=== PATIENT | female | born 1935 | race Caucasian/White ===

== ENCOUNTER 2024-05-15 22:25 | Inpatient (IN) | payer MEDICARE, OTHER ==
[2024-05-16] MEDS ORDERED: Acetaminophen 325 MG TAB PO PRN (00:07)
[2024-05-16] MEDS ORDERED: Ondansetron ODT 4 MG TAB PO PRN (00:07)
[2024-05-16] MEDS ORDERED: Acetaminophen 650 MG Suppository PR PRN (00:07)
[2024-05-16] MEDS: Ondansetron PF 4 MG/2 ML Vial IVP PRN (00:53)
[2024-05-16] MEDS: Pantoprazole 40 MG VIAL IVP SCH ×2 (00:53→08:46)
[2024-05-16] MEDS: Sodium Chloride 0.9% 1,000 ML IV SCH (00:54)
[2024-05-16 01:14] VITALS: BMI 23.5
[2024-05-16 03:01] LABS: Chloride 95 mmol/L (98-107); Potassium 3.8 mmol/L (3.5-5.1)
[2024-05-16 03:02] LABS: Calcium 7.4 mg/dL (7.8-10.44); Glucose 88 mg/dL (83-110)
[2024-05-16 03:04] LABS: Anion Gap 13 mmol/L (10-20); Carbon Dioxide 12 mmol/L (23-31)
[2024-05-16 03:06] LABS: BUN (Urea Nitrogen) 6 mg/dL (9.8-20.1); Calc. Creatinine Clearance 73 mL/min (70-130); Estimated GFR 89
[2024-05-16 03:18] LABS: Sodium 116 mmol/L (136-145)
[2024-05-16 06:30] LABS: Phosphorus 2.6 mg/dL (2.3-4.7)
[2024-05-16 06:32] LABS: Anion Gap 10 mmol/L (10-20); BUN (Urea Nitrogen) 5 mg/dL (9.8-20.1); Calc. Creatinine Clearance 61 mL/min (70-130); Calcium 7.4 mg/dL (7.8-10.44); Carbon Dioxide 14 mmol/L (23-31); Chloride 97 mmol/L (98-107); Estimated GFR 85; Glucose 78 mg/dL (83-110); Magnesium 1.9 mg/dL (1.6-2.6); Potassium 3.8 mmol/L (3.5-5.1); Sodium 117 mmol/L (136-145)
[2024-05-16 08:27] LABS: Anion Gap 10 mmol/L (10-20); BUN (Urea Nitrogen) 5 mg/dL (9.8-20.1); Calc. Creatinine Clearance 59 mL/min (70-130); Calcium 7.5 mg/dL (7.8-10.44); Carbon Dioxide 16 mmol/L (23-31); Chloride 97 mmol/L (98-107); Estimated GFR 85; Glucose 79 mg/dL (83-110); Potassium 3.8 mmol/L (3.5-5.1); Sodium 119 mmol/L (136-145)
[2024-05-16] MEDS: Enoxaparin 40 MG (0.4 mL) SYRINGE SC SCH (08:46)
[2024-05-16 17:30] LABS: Anion Gap 12 mmol/L (10-20); BUN (Urea Nitrogen) 5 mg/dL (9.8-20.1); Calc. Creatinine Clearance 60 mL/min (70-130); Calcium 7.5 mg/dL (7.8-10.44); Carbon Dioxide 15 mmol/L (23-31); Chloride 96 mmol/L (98-107); Estimated GFR 85; Glucose 77 mg/dL (83-110); Potassium 3.8 mmol/L (3.5-5.1); Sodium 119 mmol/L (136-145)
[2024-05-16 17:43] LABS: Anion Gap 10 mmol/L (10-20); BUN (Urea Nitrogen) 6 mg/dL (9.8-20.1); Calc. Creatinine Clearance 60 mL/min (70-130); Calcium 7.3 mg/dL (7.8-10.44); Carbon Dioxide 16 mmol/L (23-31); Chloride 97 mmol/L (98-107); Estimated GFR 85; Glucose 85 mg/dL (83-110); Potassium 3.8 mmol/L (3.5-5.1); Sodium 119 mmol/L (136-145)
[2024-05-16 20:47] LABS: Anion Gap 4 mmol/L (10-20); BUN (Urea Nitrogen) 5 mg/dL (9.8-20.1); Calc. Creatinine Clearance 83 mL/min (70-130); Carbon Dioxide 13 mmol/L (23-31); Chloride 112 mmol/L (98-107); Estimated GFR 92; Glucose 63 mg/dL (83-110); Potassium 2.6 mmol/L (3.5-5.1); Sodium 126 mmol/L (136-145)
[2024-05-16] MEDS ORDERED: Potassium Chloride 20 MEQ TAB PO SCH (21:00)
[2024-05-16] MEDS ORDERED: Calcium Carbonate 500 MG ChewTAB PO SCH (21:00)
[2024-05-16] MEDS ORDERED: Electrolyte Replacement Protocol 1 EACH FS SCH (21:00)
[2024-05-16] MEDS: Potassium Bicarbonate/Cit Ac 20 MEQ TAB PO SCH (22:43)
[2024-05-16] MEDS: Calcium Carbonate 600 MG TAB PO SCH (22:43)
[2024-05-17 04:22] LABS: #Basophils 0.03 10x3/uL (0.0-0.2); %Basophils 0.7 % (0.0-1.0); %Eosinophils 2.6 % (0.0-10.0); %Monocytes 10.2 % (0.0-10.0); %Neutrophils 51.3 % (42.0-75.0); Hematocrit 31.2 % (36.0-47.0); Hemoglobin 11.7 g/dL (12.0-16.0); Mean Corpuscular HGB CONC 37.5 g/dL (32.0-36.0); Mean Corpuscular Hemoglobin 30.3 pg (27.0-31.0); Mean Corpuscular Volume 80.8 fL (78.0-98.0); Mean Platelet Volume 10.6 fL (7.4-10.4); Platelet Count 133 10x3/uL (130-400); RBC Distribution Width 11.9 % (11.5-14.5); Red Blood Cell (RBC) Count 3.86 mill/uL (4.20-5.40)
[2024-05-17 05:09] LABS: Albumin 2.8 g/dL (3.4-4.8); Anion Gap 10 mmol/L (10-20); BUN (Urea Nitrogen) 6 mg/dL (9.8-20.1); BUN/Creatinine Ratio 9.09; Calc. Creatinine Clearance 59 mL/min (70-130); Calcium 8.2 mg/dL (7.8-10.44); Carbon Dioxide 19 mmol/L (23-31); Chloride 94 mmol/L (98-107); Estimated GFR 85; Glucose 88 mg/dL (83-110); Magnesium 1.9 mg/dL (1.6-2.6); Phosphorus 2.4 mg/dL (2.3-4.7); Sodium 118 mmol/L (136-145)
[2024-05-17] MEDS: Levothyroxine Sodium 50 MCG TAB PO SCH (06:17)
[2024-05-17] MEDS: Calcium Carbonate 600 MG + Vit D TAB PO SCH (10:39)
[2024-05-17] MEDS: Magnesium 2 GM/50 ML(in water) 2 GM in Premix 1 BAG IVPB SCH (10:39)
[2024-05-17] MEDS: Sodium Chloride 0.9% 1,000 ML IV SCH (10:40)
[2024-05-17 10:46] LABS: Anion Gap 9 mmol/L (10-20); BUN (Urea Nitrogen) 6 mg/dL (9.8-20.1); Calc. Creatinine Clearance 58 mL/min (70-130); Calcium 8.4 mg/dL (7.8-10.44); Carbon Dioxide 20 mmol/L (23-31); Chloride 94 mmol/L (98-107); Estimated GFR 85; Glucose 147 mg/dL (83-110); Potassium 3.9 mmol/L (3.5-5.1); Sodium 119 mmol/L (136-145)
[2024-05-17 21:05] LABS: Chloride 94 mmol/L (98-107); Potassium 4.6 mmol/L (3.5-5.1)
[2024-05-17 21:06] LABS: Calcium 7.9 mg/dL (7.8-10.44); Glucose 96 mg/dL (83-110)
[2024-05-17 21:08] LABS: Anion Gap 13 mmol/L (10-20); Carbon Dioxide 16 mmol/L (23-31)
[2024-05-17 21:10] LABS: Calc. Creatinine Clearance 64 mL/min (70-130); Estimated GFR 87
[2024-05-17 21:11] LABS: BUN (Urea Nitrogen) 8 mg/dL (9.8-20.1)
[2024-05-17 21:14] LABS: Sodium 118 mmol/L (136-145)
[2024-05-18 04:14] LABS: #Basophils 0.03 10x3/uL (0.0-0.2); %Basophils 0.6 % (0.0-1.0); %Eosinophils 2.5 % (0.0-10.0); %Lymphocytes 38.7 % (21.0-51.0); %Monocytes 11.8 % (0.0-10.0); %Neutrophils 45.8 % (42.0-75.0); Hematocrit 32.1 % (36.0-47.0); Hemoglobin 11.8 g/dL (12.0-16.0); Mean Corpuscular HGB CONC 36.8 g/dL (32.0-36.0); Mean Corpuscular Hemoglobin 30.3 pg (27.0-31.0); Mean Corpuscular Volume 82.5 fL (78.0-98.0); Mean Platelet Volume 10.4 fL (7.4-10.4); Platelet Count 165 10x3/uL (130-400); Red Blood Cell (RBC) Count 3.89 mill/uL (4.20-5.40)
[2024-05-18 04:25] LABS: Anion Gap 9 mmol/L (10-20); BUN (Urea Nitrogen) 6 mg/dL (9.8-20.1); Calc. Creatinine Clearance 69 mL/min (70-130); Calcium 7.9 mg/dL (7.8-10.44); Carbon Dioxide 20 mmol/L (23-31); Chloride 96 mmol/L (98-107); Estimated GFR 88; Glucose 88 mg/dL (83-110); Potassium 4.2 mmol/L (3.5-5.1); Sodium 121 mmol/L (136-145)
[2024-05-18] MEDS: Sodium Chloride 0.9% 1,000 ML IV SCH (08:55)
[2024-05-18 13:28] LABS: Magnesium 1.7 mg/dL (1.6-2.6)
[2024-05-18] MEDS: Magnesium 2 GM/50 ML(in water) 2 GM in Premix 1 BAG IVPB SCH (16:39)
[2024-05-18] MEDS: Mirtazapine 15 MG TAB PO SCH (20:04)
[2024-05-19 04:21] LABS: #Basophils 0.03 10x3/uL (0.0-0.2); %Basophils 0.6 % (0.0-1.0); %Eosinophils 3.2 % (0.0-10.0); %Lymphocytes 35.8 % (21.0-51.0); %Monocytes 10.4 % (0.0-10.0); %Neutrophils 49.8 % (42.0-75.0); Hematocrit 32.7 % (36.0-47.0); Hemoglobin 11.9 g/dL (12.0-16.0); Mean Corpuscular HGB CONC 36.4 g/dL (32.0-36.0); Mean Corpuscular Hemoglobin 30.1 pg (27.0-31.0); Mean Corpuscular Volume 82.6 fL (78.0-98.0); Mean Platelet Volume 10.6 fL (7.4-10.4); Platelet Count 170 10x3/uL (130-400); RBC Distribution Width 11.9 % (11.5-14.5); Red Blood Cell (RBC) Count 3.96 mill/uL (4.20-5.40)
[2024-05-19 04:48] LABS: Anion Gap 10 mmol/L (10-20); BUN (Urea Nitrogen) 8 mg/dL (9.8-20.1); Calc. Creatinine Clearance 68 mL/min (70-130); Calcium 7.9 mg/dL (7.8-10.44); Carbon Dioxide 19 mmol/L (23-31); Chloride 93 mmol/L (98-107); Estimated GFR 88; Glucose 91 mg/dL (83-110); Magnesium 1.9 mg/dL (1.6-2.6); Potassium 4.5 mmol/L (3.5-5.1); Sodium 117 mmol/L (136-145)
[2024-05-19] MEDS: Sodium Chloride 1 GM TAB PO SCH ×2 (09:28→20:42)
[2024-05-19] MEDS: Magnesium 2 GM/50 ML(in water) 2 GM in Premix 1 BAG IVPB SCH (09:29)
[2024-05-19] MEDS: Sodium Chloride 0.9% 1,000 ML IV SCH (09:33)
[2024-05-19 18:27] LABS: Anion Gap 11 mmol/L (10-20); BUN (Urea Nitrogen) 10 mg/dL (9.8-20.1); Calc. Creatinine Clearance 67 mL/min (70-130); Carbon Dioxide 19 mmol/L (23-31); Chloride 90 mmol/L (98-107); Estimated GFR 88; Glucose 103 mg/dL (83-110); Potassium 4.5 mmol/L (3.5-5.1); Sodium 115 mmol/L (136-145)
[2024-05-20 04:28] LABS: #Basophils 0.05 10x3/uL (0.0-0.2); %Eosinophils 3.5 % (0.0-10.0); %Lymphocytes 41.7 % (21.0-51.0); %Monocytes 9.7 % (0.0-10.0); %Neutrophils 43.7 % (42.0-75.0); Hematocrit 34.3 % (36.0-47.0); Hemoglobin 12.8 g/dL (12.0-16.0); Mean Corpuscular HGB CONC 37.3 g/dL (32.0-36.0); Mean Corpuscular Hemoglobin 30.8 pg (27.0-31.0); Mean Corpuscular Volume 82.7 fL (78.0-98.0); Mean Platelet Volume 10.1 fL (7.4-10.4); Platelet Count 181 10x3/uL (130-400); Red Blood Cell (RBC) Count 4.15 mill/uL (4.20-5.40)
[2024-05-20 05:00] LABS: Anion Gap 9 mmol/L (10-20); BUN (Urea Nitrogen) 10 mg/dL (9.8-20.1); Calc. Creatinine Clearance 70 mL/min (70-130); Calcium 8.4 mg/dL (7.8-10.44); Carbon Dioxide 19 mmol/L (23-31); Chloride 90 mmol/L (98-107); Estimated GFR 88; Glucose 95 mg/dL (83-110); Potassium 4.9 mmol/L (3.5-5.1); Sodium 113 mmol/L (136-145)
[2024-05-20] MEDS: Levothyroxine Sodium 25 MCG TAB PO SCH (10:25)
[2024-05-20 19:04] LABS: Anion Gap 12 mmol/L (10-20); BUN (Urea Nitrogen) 14 mg/dL (9.8-20.1); Calc. Creatinine Clearance 64 mL/min (70-130); Calcium 8.4 mg/dL (7.8-10.44); Carbon Dioxide 21 mmol/L (23-31); Chloride 89 mmol/L (98-107); Estimated GFR 86; Glucose 116 mg/dL (83-110); Potassium 4.4 mmol/L (3.5-5.1); Sodium 118 mmol/L (136-145)
[2024-05-21 04:19] LABS: #Basophils 0.06 10x3/uL (0.0-0.2); %Monocytes 9.2 % (0.0-10.0); %Neutrophils 46.2 % (42.0-75.0); Hematocrit 35.5 % (36.0-47.0); Mean Corpuscular HGB CONC 36.6 g/dL (32.0-36.0); Mean Corpuscular Hemoglobin 30.2 pg (27.0-31.0); Mean Corpuscular Volume 82.6 fL (78.0-98.0); Mean Platelet Volume 10.2 fL (7.4-10.4); Platelet Count 213 10x3/uL (130-400); RBC Distribution Width 11.9 % (11.5-14.5)
[2024-05-21 04:40] LABS: Anion Gap 9 mmol/L (10-20); BUN (Urea Nitrogen) 15 mg/dL (9.8-20.1); Calc. Creatinine Clearance 60 mL/min (70-130); Calcium 8.5 mg/dL (7.8-10.44); Carbon Dioxide 20 mmol/L (23-31); Chloride 87 mmol/L (98-107); Estimated GFR 85; Glucose 88 mg/dL (83-110); Magnesium 1.6 mg/dL (1.6-2.6); Potassium 5.2 mmol/L (3.5-5.1); Sodium 111 mmol/L (136-145)
[2024-05-21] MEDS: Levothyroxine Sodium 75 MCG TAB PO SCH (05:27)
[2024-05-21 08:12] LABS: Anion Gap 11 mmol/L (10-20); BUN (Urea Nitrogen) 13 mg/dL (9.8-20.1); Calc. Creatinine Clearance 55 mL/min (70-130); Calcium 8.8 mg/dL (7.8-10.44); Carbon Dioxide 21 mmol/L (23-31); Chloride 86 mmol/L (98-107); Estimated GFR 82; Glucose 93 mg/dL (83-110); Potassium 4.8 mmol/L (3.5-5.1); Sodium 113 mmol/L (136-145)
[2024-05-21] MEDS: Magnesium 2 GM/50 ML(in water) 2 GM in Premix 1 BAG IVPB SCH (08:49)
[2024-05-21] MEDS: Sodium Chloride 1 GM TAB PO SCH (15:00)
[2024-05-21] MEDS ORDERED: Electrolyte Replacement Protocol FS PRN (15:30)
[2024-05-21 21:05] LABS: Anion Gap 11 mmol/L (10-20); BUN (Urea Nitrogen) 16 mg/dL (9.8-20.1); Calc. Creatinine Clearance 54 mL/min (70-130); Calcium 8.6 mg/dL (7.8-10.44); Carbon Dioxide 19 mmol/L (23-31); Chloride 89 mmol/L (98-107); Estimated GFR 81; Glucose 107 mg/dL (83-110); Potassium 5.1 mmol/L (3.5-5.1); Sodium 114 mmol/L (136-145)
[2024-05-22 06:28] LABS: #Basophils 0.05 10x3/uL (0.0-0.2); %Basophils 0.8 % (0.0-1.0); %Eosinophils 2.5 % (0.0-10.0); %Lymphocytes 39.1 % (21.0-51.0); %Monocytes 11.2 % (0.0-10.0); %Neutrophils 45.8 % (42.0-75.0); Hematocrit 38.1 % (36.0-47.0); Hemoglobin 13.9 g/dL (12.0-16.0); Mean Corpuscular HGB CONC 36.5 g/dL (32.0-36.0); Mean Corpuscular Hemoglobin 30.2 pg (27.0-31.0); Mean Corpuscular Volume 82.8 fL (78.0-98.0); Mean Platelet Volume 10.2 fL (7.4-10.4); Platelet Count 224 10x3/uL (130-400)
[2024-05-22 06:44] LABS: Anion Gap 12 mmol/L (10-20); BUN (Urea Nitrogen) 18 mg/dL (9.8-20.1); Calc. Creatinine Clearance 55 mL/min (70-130); Carbon Dioxide 20 mmol/L (23-31); Chloride 87 mmol/L (98-107); Estimated GFR 82; Glucose 90 mg/dL (83-110); Magnesium 1.9 mg/dL (1.6-2.6); Potassium 5.4 mmol/L (3.5-5.1); Sodium 114 mmol/L (136-145)
[2024-05-22] MEDS: Magnesium 2 GM/50 ML(in water) 2 GM in Premix 1 BAG IVPB SCH (09:03)
[2024-05-22] MEDS ORDERED: Polyethylene Glycol 3350 17 GM Packet PO PRN (12:53)
[2024-05-22] MEDS: Docusate 100 MG CAP PO SCH (14:14)
[2024-05-22] MEDS: Lactulose 20 GM (30 mL) UDCUP PO SCH (14:14)
[2024-05-22 18:36] LABS: Anion Gap 12 mmol/L (10-20); BUN (Urea Nitrogen) 19 mg/dL (9.8-20.1); Calc. Creatinine Clearance 48 mL/min (70-130); Calcium 8.8 mg/dL (7.8-10.44); Carbon Dioxide 20 mmol/L (23-31); Chloride 90 mmol/L (98-107); Estimated GFR 69; Glucose 118 mg/dL (83-110); Potassium 4.9 mmol/L (3.5-5.1); Sodium 117 mmol/L (136-145)
[2024-05-22] MEDS: Docusate 100 MG CAP PO PRN (20:47)
[2024-05-23 04:55] LABS: #Basophils 0.05 10x3/uL (0.0-0.2); %Basophils 0.5 % (0.0-1.0); %Eosinophils 0.8 % (0.0-10.0); %Lymphocytes 22.3 % (21.0-51.0); %Monocytes 8.3 % (0.0-10.0); %Neutrophils 67.5 % (42.0-75.0); Hematocrit 37.6 % (36.0-47.0); Hemoglobin 13.7 g/dL (12.0-16.0); Mean Corpuscular HGB CONC 36.4 g/dL (32.0-36.0); Mean Corpuscular Hemoglobin 30.2 pg (27.0-31.0); Mean Platelet Volume 10.1 fL (7.4-10.4); Platelet Count 249 10x3/uL (130-400); RBC Distribution Width 12.1 % (11.5-14.5); Red Blood Cell (RBC) Count 4.53 mill/uL (4.20-5.40)
[2024-05-23 06:02] LABS: Anion Gap 13 mmol/L (10-20); BUN (Urea Nitrogen) 18 mg/dL (9.8-20.1); Calc. Creatinine Clearance 55 mL/min (70-130); Calcium 8.8 mg/dL (7.8-10.44); Carbon Dioxide 20 mmol/L (23-31); Chloride 87 mmol/L (98-107); Estimated GFR 81; Glucose 100 mg/dL (83-110); Potassium 5.5 mmol/L (3.5-5.1); Sodium 114 mmol/L (136-145)
[2024-05-23] MEDS: Magnesium 2 GM/50 ML(in water) 2 GM in Premix 1 BAG IVPB SCH (10:18)
[2024-05-23 13:42] VITALS: BMI 23.1
[2024-05-23 19:07] LABS: Anion Gap 13 mmol/L (10-20); BUN (Urea Nitrogen) 20 mg/dL (9.8-20.1); Calc. Creatinine Clearance 50 mL/min (70-130); Calcium 8.5 mg/dL (7.8-10.44); Carbon Dioxide 16 mmol/L (23-31); Chloride 88 mmol/L (98-107); Estimated GFR 75; Glucose 158 mg/dL (83-110); Potassium 4.9 mmol/L (3.5-5.1); Sodium 112 mmol/L (136-145)
[2024-05-23 21:50] LABS: Sodium 115 mmol/L (136-145)
[2024-05-24 03:59] LABS: Sodium 116 mmol/L (136-145)
[2024-05-24 06:11] LABS: #Basophils 0.06 10x3/uL (0.0-0.2); %Basophils 0.8 % (0.0-1.0); %Eosinophils 1.6 % (0.0-10.0); %Lymphocytes 28.6 % (21.0-51.0); %Monocytes 10.3 % (0.0-10.0); %Neutrophils 58.2 % (42.0-75.0); Hematocrit 38.3 % (36.0-47.0); Hemoglobin 13.8 g/dL (12.0-16.0); Mean Corpuscular Hemoglobin 29.9 pg (27.0-31.0); Mean Corpuscular Volume 83.1 fL (78.0-98.0); Mean Platelet Volume 10.3 fL (7.4-10.4); Platelet Count 244 10x3/uL (130-400); Red Blood Cell (RBC) Count 4.61 mill/uL (4.20-5.40)
[2024-05-24 06:16] LABS: Anion Gap 12 mmol/L (10-20); BUN (Urea Nitrogen) 19 mg/dL (9.8-20.1); Calc. Creatinine Clearance 53 mL/min (70-130); Calcium 9.3 mg/dL (7.8-10.44); Carbon Dioxide 20 mmol/L (23-31); Chloride 90 mmol/L (98-107); Estimated GFR 77; Glucose 91 mg/dL (83-110); Potassium 4.2 mmol/L (3.5-5.1); Sodium 118 mmol/L (136-145)
[2024-05-24 08:52] LABS: Sodium 118 mmol/L (136-145)
[2024-05-24] MEDS: Lactulose 20 GM (30 mL) UDCUP PO PRN (14:23)
[2024-05-24] MEDS ORDERED: Bisacodyl 5 MG TAB PO PRN (14:26)
[2024-05-24] MEDS ORDERED: Milk Of Magnesia 30 ML UDCUP PO PRN (14:26)
[2024-05-24] MEDS ORDERED: Bisacodyl 10 MG SUPP PR PRN (14:26)
[2024-05-24 14:36] LABS: Sodium 121 mmol/L (136-145)
[2024-05-24 20:30] LABS: Sodium 121 mmol/L (136-145)
[2024-05-25 03:07] LABS: #Basophils 0.06 10x3/uL (0.0-0.2); %Basophils 0.7 % (0.0-1.0); %Eosinophils 1.5 % (0.0-10.0); %Lymphocytes 28.6 % (21.0-51.0); %Monocytes 9.2 % (0.0-10.0); %Neutrophils 59.7 % (42.0-75.0); Hematocrit 38.4 % (36.0-47.0); Hemoglobin 13.9 g/dL (12.0-16.0); Mean Corpuscular HGB CONC 36.2 g/dL (32.0-36.0); Mean Corpuscular Hemoglobin 30.5 pg (27.0-31.0); Mean Corpuscular Volume 84.4 fL (78.0-98.0); Mean Platelet Volume 9.7 fL (7.4-10.4); Platelet Count 222 10x3/uL (130-400); Red Blood Cell (RBC) Count 4.55 mill/uL (4.20-5.40)
[2024-05-25 05:14] LABS: Anion Gap 14 mmol/L (10-20); BUN (Urea Nitrogen) 21 mg/dL (9.8-20.1); Calc. Creatinine Clearance 57 mL/min (70-130); Calcium 9.1 mg/dL (7.8-10.44); Carbon Dioxide 16 mmol/L (23-31); Chloride 94 mmol/L (98-107); Estimated GFR 85; Glucose 103 mg/dL (83-110); Magnesium 1.8 mg/dL (1.6-2.6); Potassium 4.8 mmol/L (3.5-5.1); Sodium 119 mmol/L (136-145)
[2024-05-25] MEDS: Magnesium 2 GM/50 ML(in water) 2 GM in Premix 1 BAG IVPB SCH (08:11)
[2024-05-25 08:42] LABS: Sodium 121 mmol/L (136-145)
[2024-05-25 14:54] LABS: Sodium 123 mmol/L (136-145)
[2024-05-25 20:47] LABS: Sodium 123 mmol/L (136-145)
[2024-05-26 02:32] LABS: Sodium 125 mmol/L (136-145)
[2024-05-26 05:36] LABS: #Basophils 0.06 10x3/uL (0.0-0.2); %Basophils 0.8 % (0.0-1.0); %Eosinophils 2.4 % (0.0-10.0); %Lymphocytes 31.6 % (21.0-51.0); %Monocytes 9.9 % (0.0-10.0); %Neutrophils 54.8 % (42.0-75.0); Hematocrit 37.6 % (36.0-47.0); Hemoglobin 13.4 g/dL (12.0-16.0); Mean Corpuscular HGB CONC 35.6 g/dL (32.0-36.0); Mean Corpuscular Hemoglobin 29.8 pg (27.0-31.0); Mean Corpuscular Volume 83.7 fL (78.0-98.0); Mean Platelet Volume 9.9 fL (7.4-10.4); Platelet Count 235 10x3/uL (130-400); RBC Distribution Width 12.2 % (11.5-14.5); Red Blood Cell (RBC) Count 4.49 mill/uL (4.20-5.40)
[2024-05-26 05:56] LABS: ALT (SGPT) 26 U/L (8-55); AST (SGOT) 21 U/L (5-34); Albumin 3.3 g/dL (3.4-4.8); Alkaline Phosphatase 80 U/L (40-110); Anion Gap 13 mmol/L (10-20); BUN (Urea Nitrogen) 23 mg/dL (9.8-20.1); Bilirubin, Total 0.5 mg/dL (0.2-1.2); Calc. Creatinine Clearance 51 mL/min (70-130); Calcium 8.9 mg/dL (7.8-10.44); Carbon Dioxide 21 mmol/L (23-31); Chloride 96 mmol/L (98-107); Estimated GFR 76; Glucose 100 mg/dL (83-110); Protein, Total 6.3 g/dL (5.8-8.1); Sodium 125 mmol/L (136-145)
[2024-05-26] MEDS: Magnesium 2 GM/50 ML(in water) 2 GM in Premix 1 BAG IVPB SCH (08:27)
[2024-05-26] MEDS: Tolvaptan 15 MG TAB PO SCH (08:27)
[2024-05-26 08:50] LABS: Sodium 125 mmol/L (136-145)
[2024-05-26] MEDS ORDERED: Artificial Tear Ophth Sol 15 ML BOT EA EYE PRN (12:54)
[2024-05-26 15:52] LABS: Sodium 128 mmol/L (136-145)
[2024-05-26 20:48] LABS: Sodium 129 mmol/L (136-145)
[2024-05-27 02:52] LABS: #Basophils 0.08 10x3/uL (0.0-0.2); %Basophils 0.8 % (0.0-1.0); %Eosinophils 2.1 % (0.0-10.0); %Lymphocytes 30.5 % (21.0-51.0); %Monocytes 9.2 % (0.0-10.0); Hematocrit 37.5 % (36.0-47.0); Hemoglobin 13.4 g/dL (12.0-16.0); Mean Corpuscular HGB CONC 35.7 g/dL (32.0-36.0); Mean Corpuscular Hemoglobin 30.9 pg (27.0-31.0); Mean Corpuscular Volume 86.6 fL (78.0-98.0); Mean Platelet Volume 9.6 fL (7.4-10.4); Platelet Count 238 10x3/uL (130-400); RBC Distribution Width 12.4 % (11.5-14.5); Red Blood Cell (RBC) Count 4.33 mill/uL (4.20-5.40)
[2024-05-27 04:05] LABS: ALT (SGPT) 25 U/L (8-55); AST (SGOT) 20 U/L (5-34); Albumin 3.3 g/dL (3.4-4.8); Alkaline Phosphatase 80 U/L (40-110); Anion Gap 16 mmol/L (10-20); BUN (Urea Nitrogen) 27 mg/dL (9.8-20.1); Bilirubin, Total 0.3 mg/dL (0.2-1.2); Calc. Creatinine Clearance 44 mL/min (70-130); Calcium 9.1 mg/dL (7.8-10.44); Carbon Dioxide 15 mmol/L (23-31); Chloride 102 mmol/L (98-107); Estimated GFR 64; Globulin 3.3 g/dL (2.4-3.5); Glucose 105 mg/dL (83-110); Magnesium 2.2 mg/dL (1.6-2.6); Potassium 5.2 mmol/L (3.5-5.1); Protein, Total 6.6 g/dL (5.8-8.1); Sodium 128 mmol/L (136-145)
[2024-05-27 07:48] VITALS: TEMP 97.8
[2024-05-27 08:32] LABS: Sodium 129 mmol/L (136-145)
[2024-05-27 12:10] VITALS: BP 97/63
== END 2024-05-27 13:25 | disposition home or self-care (01) | DRG 644 ==
LOC: 2NO 23:39 → T4-A 05-24 18:42
PROVIDERS: ADMIT Family Medicine; ATTEND Internal Medicine
DX: E22.2 Syndrome of inappropriate secretion of antidiuretic hormone (principal); E87.20 Acidosis, unspecified; K21.9 Gastro-esophageal reflux disease without esophagitis; E03.9 Hypothyroidism, unspecified; E87.6 Hypokalemia; E83.51 Hypocalcemia; K52.9 Noninfective gastroenteritis and colitis, unspecified; K59.00 Constipation, unspecified; Z88.2 Allergy status to sulfonamides; Z88.1 Allergy status to other antibiotic agents; Z88.8 Allergy status to other drugs, medicaments and biological substances; Z85.3 Personal history of malignant neoplasm of breast
CPT/HCPCS: 36415; 36416; 80048; 80069; 82140; 82533; 83735; 83930; 83935; 84100; 84300; 84443; 85025; J1650; J2405; J2470; J3475; J7030